=== PATIENT | male | born 1995 | race Caucasian/White ===

== ENCOUNTER 2020-02-16 09:14 | Outpatient (REF) | payer MEDICARE, MEDICAID, SELFPAY ==
[2020-02-16 11:47] LABS: Anion Gap 16 (12-20); Blood Urea Nitrogen 11 mg/dL (9-16); Calcium 9.4 mg/dL (8.4-10.2); Carbon Dioxide 24 mmol/L (22-29); Chloride 104 mmol/L (96-108); Estimated Glomerular Filt Rate > 60; Glucose Fasting 77 mg/dL (60-99); Potassium 4.1 mmol/l (3.3-5.1); Sodium 140 mmol/L (135-145)
== END 2020-02-16 09:15 | disposition home or self-care (01) ==
LOC: HO.HMGCLDS 09:14
PROVIDERS: PCP Nurse Practitioner Family; Visit Provider Psychiatry & Neurology Child & Adolescent Psychiatry
DX: F41.9 Anxiety disorder, unspecified (principal); Z79.899 Other long term (current) drug therapy; F84.0 Autistic disorder
CPT/HCPCS: 80048

== ENCOUNTER 2020-05-01 18:47 | Emergency (ER) | payer MEDICARE, MEDICAID, SELFPAY ==
[2020-05-01 19:45] VITALS: BP 125/85; PULSE 106; RESP 16; TEMP 37.1; O2SAT 98; BMI 32.3
--- NOTE | 2020-05-01 19:50 | ED.SKABFB ---
HPI - Skin/Abscess/Foreign Bdy General Chief complaint: Skin/Abscess/Foreign Body Stated complaint: SWALLOWED A BONE Time Seen by Provider: 05/01/20 19:50 Source: patient Mode of arrival: ambulatory Limitations: no limitations History of Present Illness HPI narrative: Patient had chicken earlier at 17:30 felt bone stuck in his throat no vomiting able to drink water not spitting up any blood no shortness of breath no abdominal pain patient never had similar situation in the past, no speech problems no shortness of breath Related Data Allergies Allergy/AdvReac Type Severity Reaction Status Date / Time amoxicillin Allergy Hives Verified 05/01/20 19:57 Review of Systems Review of Systems: Yes all other systems are reviewed and are negative PMFSH Past Medical History Medical History Acute anxiety Mood disorder PTSD (post-traumatic stress disorder) Social History Social History Alcohol intake: never Smoked in Last 30 Days: No Use of substances other than those prescribed or required for medical reasons: No Advance Directives: No Advance Directives Information Provided: Yes Physical Exam Vital Signs: Vital Signs: Last Vital Signs Temp 98.7 F 05/01/20 19:45 Pulse 106 H 05/01/20 19:45 Resp 16 05/01/20 19:45 BP 125/85 05/01/20 19:45 Pulse Ox 98 05/01/20 19:45 Body Mass Index 32.3 Appearance: Alert. Oriented X3. Anxious Eyes: Pupils equal, round and reactive to light. ENT: Pharynx normal. Neck: Normal inspection. Neck supple. No stridor CVS: Normal heart rate and rhythm. Pulses normal. Respiratory: No respiratory distress. Breath sounds normal. Abdomen: Soft and nontender. Bowel sounds are present, no mass palpable, no CVA tenderness Skin: Skin warm and dry. Normal skin color. Normal skin turgor. Extremities: No lower extremity edema. Neuro: Oriented X 3. No motor deficit. No sensory deficit. MDM - Skin/Abscess/Foreign Bdy MDM Narrative Medical decision making narrative: X-ray soft neck is negative for any foreign body. Patient able to swallow putting in the ER feels much better will discharge patient home advised to come back if any difficulty in swallowing or any bleeding Discharge Plan Discharge Clinical Impression: Foreign body, swallowed Qualifiers: Encounter type: initial encounter Qualified Code(s): T18.9XXA - Foreign body of alimentary tract, part unspecified, initial encounter Patient Disposition: Home, Self-Care Instructions: Foreign Body Ingestion (ED) Additional Instructions: Drink cold fluids, report to the ER if difficulty in swallowing or spitting of blood or shortness of breath Interventions: ED Discharge Assessment Last Done: 05/01/20 21:17 Discharge Date/Time: 05/01/20 21:19
--- NOTE | 2020-05-01 19:54 | XR_ITS ---
EXAMINATION: XR SOFT TISSUE NECK CLINICAL INDICATION: Question aamirbone COMPARISON: None TECHNIQUE: 2 views of the soft tissue neck were obtained. FINDINGS: Soft tissue films of the neck demonstrate a normal larynx, pharynx and upper trachea. No soft tissue swelling or opaque foreign body is demonstrated. XR/XR soft tissue neck IMPRESSION: Unremarkable examination.
--- NOTE | 2020-05-01 20:10 | PC.NURSE ---
PT HAS MOM AT BEDSIDE SHE IS HIS LEGAL GUARDIAN.
--- NOTE | 2020-05-01 21:17 | PC.NURSE ---
PT EATING PUDDING WITHOUT ISSUE NO PROBLEM SWALLOWING.
== END 2020-05-01 21:19 | disposition home or self-care (01) ==
PROVIDERS: Emergency Provider Internal Medicine; PCP Nurse Practitioner Family
DX: R13.10 Dysphagia, unspecified (principal); R09.89 Other specified symptoms and signs involving the circulatory and respiratory systems
CPT/HCPCS: 70360; 99283; 99284

== ENCOUNTER 2020-06-14 08:16 | Outpatient (REF) | payer MEDICARE, MEDICAID, SELFPAY ==
[2020-06-14 11:12] LABS: MANUAL DIFF FLAG NO
[2020-06-14 11:23] LABS: Basophils Percent Auto 0.9 % (0-2); Eosinophils Absolute Auto 0.1 X10*3/uL (0.0-0.4); Eosinophils Percent Auto 1.1 % (0-4); Hemoglobin 15.5 g/dl (14.0-18.0); Imm Gran Abs Auto 0.01 X10*3/uL (0.00-0.03); Imm Gran Pct Auto 0.2 % (0.0-0.4); Lymphocytes Absolute Auto 1.4 X10*3/uL (1.2-4.9); Lymphocytes Percent Auto 32.4 % (20-40); Mean Corpuscular HGB Conc 34.4 g/dl (31.0-36.0); Mean Platelet Volume 10.7 fL (9.4-12.4); Monocytes Absolute Auto 0.5 X10*3/uL (0.1-1.2); Monocytes Percent Auto 10.6 % (2-11); Neutrophils Absolute Auto 2.4 X10*3/uL (2.0-8.3); Neutrophils Percent Auto 54.8 % (45-73); Platelet Count 229 X10*3/uL (160-400); Red Cell Distribution Width 12.5 % (11.0-16.0); White Blood Count 4.4 X10*3/uL (4.8-10.8)
[2020-06-14 11:58] LABS: Anion Gap 14 (12-20); Blood Urea Nitrogen 16 mg/dL (9-16); Calcium 9.4 mg/dL (8.4-10.2); Carbon Dioxide 24 mmol/L (22-29); Chloride 107 mmol/L (96-108); Cholesterol 212 mg/dL; Estimated Glomerular Filt Rate > 60; Glucose Fasting 85 mg/dL (60-99); HDL Cholesterol 44 mg/dL; LDL Cholesterol Calculated 130 mg/dl; Potassium 4.1 mmol/L (3.3-5.1); Sodium 141 mmol/L (135-145); Triglycerides 191 mg/dL
[2020-06-14 12:02] LABS: Thyroid Stimulating Hormone 4.32 uIU/mL (0.32-4.0)
[2020-06-14 12:03] LABS: Estimated Average Glucose 88 mg/dL; Hemoglobin A1c % 4.7 %
[2020-06-15 06:27] LABS: Prolactin 25.9 ng/mL (2.0-18.0)
== END 2020-06-14 08:17 | disposition home or self-care (01) ==
LOC: HO.HMGCLDS 08:16
PROVIDERS: PCP Nurse Practitioner Family; Visit Provider Psychiatry & Neurology Child & Adolescent Psychiatry
DX: F63.81 Intermittent explosive disorder (principal); Z79.899 Other long term (current) drug therapy
CPT/HCPCS: 36415; 80048; 80061; 83036; 84146; 84443; 85025

== ENCOUNTER 2021-03-27 07:48 | Outpatient (REF) | payer MEDICARE, MEDICAID, SELFPAY ==
[2021-03-27 11:55] LABS: Anion Gap 13 (12-20); Blood Urea Nitrogen 15 mg/dL (9-16); Calcium 9.6 mg/dL (8.4-10.2); Carbon Dioxide 24 mmol/L (22-29); Chloride 108 mmol/L (96-108); Estimated Glomerular Filt Rate > 60; Glucose Fasting 80 mg/dL (60-99); Potassium 4.4 mmol/L (3.3-5.1); Sodium 141 mmol/L (135-145)
== END 2021-03-27 07:49 | disposition home or self-care (01) ==
LOC: HO.HMGCLDS 07:48
PROVIDERS: PCP Nurse Practitioner Family; Visit Provider Psychiatry & Neurology Child & Adolescent Psychiatry
DX: F63.81 Intermittent explosive disorder (principal); Z79.899 Other long term (current) drug therapy
CPT/HCPCS: 36415; 80048

== ENCOUNTER → 2021-11-07 10:39 | Outpatient (REF) | payer MEDICARE, MEDICAID, SELFPAY ==
--- NOTE | 2021-11-07 11:00 | ECG_ITS ---
Test Reason : HIGH RISK MED Blood Pressure : / mmHG Vent. Rate : 076 BPM Atrial Rate : 076 BPM P-R Int : 144 ms QRS Dur : 106 ms QT Int : 360 ms P-R-T Axes : 054 073 071 degrees QTc Int : 405 ms Normal sinus rhythm Normal ECG No previous ECGs available Referred By: Yaw Vick Electronically Signed By:Vaibhav Ordoñez
== END ==
LOC: HO.CARD 10:39
PROVIDERS: PCP Nurse Practitioner Family; Visit Provider Psychiatry & Neurology Child & Adolescent Psychiatry
DX: Z79.899 Other long term (current) drug therapy (principal)
CPT/HCPCS: 93005

== ENCOUNTER 2022-05-05 11:04 | Outpatient (REF) | payer MEDICARE, MEDICAID, SELFPAY ==
[2022-05-05 13:58] LABS: MANUAL DIFF FLAG NO
[2022-05-05 14:03] LABS: Basophils Absolute Auto 0.1 X10*3/uL (0.0-0.2); Basophils Percent Auto 0.9 % (0-2); Eosinophils Percent Auto 0.6 % (0-4); Hematocrit 46.6 % (42.0-52.0); Hemoglobin 16.2 g/dl (14.0-18.0); Imm Gran Abs Auto 0.02 X10*3/uL (0.00-0.03); Imm Gran Pct Auto 0.4 % (0.0-0.4); Lymphocytes Absolute Auto 1.4 X10*3/uL (1.2-4.9); Lymphocytes Percent Auto 26.5 % (20-40); Mean Corpuscular HGB Conc 34.8 g/dl (31.0-36.0); Mean Corpuscular Volume 89.1 fL (80.0-98.0); Mean Platelet Volume 10.3 fL (9.4-12.4); Monocytes Absolute Auto 0.5 X10*3/uL (0.1-1.2); Neutrophils Absolute Auto 3.3 x10*3/uL (2.0-8.3); Neutrophils Percent Auto 61.6 % (45-73); Platelet Count 184 X10*3/uL (160-400); Red Blood Count 5.23 X10*6/uL (4.60-5.80); White Blood Count 5.4 X10*3/uL (4.8-10.8)
[2022-05-05 14:12] LABS: Anion Gap 15 (12-20); Blood Urea Nitrogen 17 mg/dL (9-16); Calcium 9.7 mg/dL (8.4-10.2); Carbon Dioxide 23 mmol/L (22-29); Chloride 107 mmol/L (96-108); Cholesterol 200 mg/dL; Estimated Average Glucose 85 mg/dL; Estimated Glomerular Filt Rate > 60; Glucose Fasting 83 mg/dL (60-99); HDL Cholesterol 47 mg/dL; Hemoglobin A1c % 4.6 %; LDL Cholesterol Calculated 122 mg/dl; Potassium 4.5 mmol/L (3.3-5.1); Sodium 140 mmol/L (135-145); Triglycerides 157 mg/dL
[2022-05-06 01:13] LABS: Prolactin 23.5 ng/mL (2.0-18.0)
== END 2022-05-05 11:05 | disposition home or self-care (01) ==
LOC: HO.HMGCLDS 11:04
PROVIDERS: PCP General Practice; Visit Provider General Practice
DX: F41.9 Anxiety disorder, unspecified (principal); F84.0 Autistic disorder; F43.81 Prolonged grief disorder; Z79.899 Other long term (current) drug therapy
CPT/HCPCS: 36415; 80048; 80061; 83036; 84146; 85025

== ENCOUNTER 2023-12-16 08:54 | Outpatient (REF) | payer MEDICARE, MEDICAID, SELFPAY ==
[2023-12-16 10:09] LABS: MANUAL DIFF FLAG NO
[2023-12-16 10:13] LABS: Basophils Absolute Auto 0.1 X10*3/uL (0.0-0.2); Eosinophils Percent Auto 0.8 % (0-4); Hematocrit 44.8 % (42.0-52.0); Hemoglobin 16.2 g/dl (14.0-18.0); Imm Gran Abs Auto 0.03 X10*3/uL (0.00-0.03); Imm Gran Pct Auto 0.6 % (0.0-0.4); Lymphocytes Absolute Auto 1.4 X10*3/uL (1.2-4.9); Lymphocytes Percent Auto 27.9 % (20-40); Mean Corpuscular HGB Conc 36.2 g/dl (31.0-36.0); Mean Corpuscular Volume 88.5 fL (80.0-98.0); Mean Platelet Volume 10.1 fL (9.4-12.4); Monocytes Absolute Auto 0.7 X10*3/uL (0.1-1.2); Monocytes Percent Auto 12.6 % (2-11); Neutrophils Percent Auto 57.1 % (45-73); Platelet Count 176 X10*3/uL (160-400); Red Blood Count 5.06 X10*6/uL (4.60-5.80); Red Cell Distribution Width 12.5 % (11.0-16.0); White Blood Count 5.2 X10*3/uL (4.8-10.8)
[2023-12-16 10:25] LABS: Estimated Average Glucose 82 mg/dL; Hemoglobin A1c % 4.5 % (<6.0)
[2023-12-16 10:47] LABS: Cholesterol 204 mg/dL (<200); HDL Cholesterol 47 mg/dL (>40); LDL Cholesterol Calculated 115 mg/dL (<100); Triglycerides 212 mg/dL (<150)
== END 2023-12-16 08:55 | disposition home or self-care (01) ==
LOC: HO.HMGCLDS 08:54
PROVIDERS: Visit Provider Psychiatry & Neurology Psychiatry
DX: Z79.899 Other long term (current) drug therapy (principal); F41.9 Anxiety disorder, unspecified; F84.0 Autistic disorder; F43.89 Other reactions to severe stress; F71 Moderate intellectual disabilities
CPT/HCPCS: 36415; 80061; 83036; 85025

== ENCOUNTER 2024-12-24 08:07 | Outpatient (REF) | payer MEDICARE, MEDICAID, SELFPAY ==
[2024-12-24 11:11] LABS: MANUAL DIFF FLAG NO
[2024-12-24 11:27] LABS: Hematocrit 41.8 % (42.0-52.0); Hemoglobin 14.8 g/dl (14.0-18.0); Imm Gran Abs Auto 0.01 X10*3/uL (0.00-0.03); Imm Gran Pct Auto 0.2 % (0.0-0.4); Lymphocytes Absolute Auto 1.3 X10*3/uL (1.2-4.9); Mean Corpuscular HGB Conc 35.4 g/dl (31.0-36.0); Mean Corpuscular Hemoglobin 31.9 pg (27.0-33.0); Mean Corpuscular Volume 90.1 fL (80.0-98.0); NRBC Abs Auto 0.000 X10*3/uL (0.0-0.012); NRBC Pct Auto 0.0 /100WBC (0.0-0.2); Platelet Count 169 X10*3/uL (160-400); Red Blood Count 4.64 X10*6/uL (4.60-5.80); White Blood Count 5.3 X10*3/uL (4.8-10.8)
[2024-12-24 11:48] LABS: Alanine Aminotransferase 89 U/L (0-40); Albumin Level 4.7 g/dL (3.5-5.0); Alkaline Phosphatase 112 U/L (39-117); Anion Gap 15 (12-20); Aspartate Amino Transferase 39 U/L (5-37); Blood Urea Nitrogen 16 mg/dL (9-16); Calcium 9.0 mg/dL (8.4-10.2); Carbon Dioxide 22 mmol/L (22-29); Chloride 109 mmol/L (96-108); Estimated Glomerular Filt Rate > 60; Potassium 4.1 mmol/L (3.3-5.1); Sodium 142 mmol/L (135-145); Total Protein 7.4 g/dL (6.5-8.0)
== END 2024-12-24 08:08 | disposition home or self-care (01) ==
LOC: HO.HMGCLDS 08:07
PROVIDERS: Visit Provider Clinical Nurse Specialist Psychiatric/Mental Health, Adult
DX: F41.9 Anxiety disorder, unspecified (principal); E89.0 Postprocedural hypothyroidism; F71 Moderate intellectual disabilities; Z79.899 Other long term (current) drug therapy
CPT/HCPCS: 36415; 80053; 85025

== ENCOUNTER 2025-04-17 08:09 | Outpatient (AMB) | payer MEDICARE, MEDICAID, SELFPAY ==
--- OUTSIDE RECORDS SUMMARY | 2025-04-17 08:12 | XMS_ITS | Data Portability ---
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 History of nasal trauma as a young child. Examination today demonstrates crooked nasal dorsum to the right. Septum deviates to the left. He has nasal valve collapse bilaterally and notes improvement in nasal breathing with the Dung Maneuver. His symptoms of snoring, fatigue and headaches are concerning for sleep apnea. I would recommend a sleep study for further evaluation. He would prefer to do a home sleep study if possible given his anxiety issues. In the interim, I would recommend Flonase daily and breathe right strips. He will follow up after the sleep study for review and reassessment of symptoms. [email or web address] Not available 02/24/2024 14:50:47 Plan of Treatment Reminders Order Date Submit Date Provider Last Modified By Organization Details Last Modified Time Details Appointments None recorded. Lab None recorded. Referral None recorded. Procedures None recorded. Surgeries None recorded. Imaging polysomnogr am - patient would prefer a home sleep study 2023 024 [facility], [address] [place], [address], 16:09:44 Medication Orders fluticasone propionate 50 mcg/actuati on nasal spray,suspe nsion 2023 024 [id number], [address], [place], [id number], 4 14:51:56 Patient TargetsNo targets recorded. Patient InstructionsNo instructions recorded. Reason for Referral None Reported. Problems Name Problem SNOMED Code Status Onset Date Resolution Date Notes Provider Name and Address Organization Details Recorded Time Impacted cerumen of bilateral ears 99216632376 66062 Active 2020 Impacted cerumen, bilateral ; Note: Date Diagnosed : 12/19/2020 12:39 PM (H61.23) Not Available [facility] 4 02:58:38 Impacted cerumen in right ear 40842488966 27633 Active 2020 Impacted cerumen, right ear; Note: Date Diagnosed : 01/23/2021 12:06 PM (H61.21) Not Available [facility] 4 02:58:36 Snoring 18610524 Active 2023 Emily drake [place] - [facility] 14:48:31 Nasal congestio n 83978074 Active 2023 Emily drake [place] - [facility] 4 14:48:34 Headache 05992355 Active 2023 Emily drake [place] - [facility] 4 14:48:36 Fatigue 97108727 Active 2023 Emily drake [place] - [facility] [place] [facility] 14:48:39 Problem Notes None recorded. Medical Equipment None Reported. Allergies No known drug allergies Medications Name Sig Start Date Stop Date Status Note LastModified by Organization Details LastModified Time risperido ne 4 mg tablet 02/23 completed Medicati on ID: [id number] Triny roa Name: risperid one Send Method: E-Prescr ibed Sub s Allowed: subs OK Speci al Instruct ion: TAKE 1/2 TABLET BY MOUTH TWICE DAILY Me dication GenericN sanjay: risperid one Not Available Not Available Not Available acetamino phen 500 mg tablet 02/23 completed Medicati on ID: [id number] B rand Name: acetamin ophen Se nd Method: E-Prescr ibed Sub s Allowed: subs OK Speci al Instruct ion: TK 1 T PO Q 4 H PRN Medi cationGe nericNam e: acetamin ophen Not Available Not Available Not Available risperido ne 2 mg tablet TAKE 1 TABLET BY MOUTH TWICE DAILY active Not Available Not Available No t Available propranol ol 10 mg tablet TAKE 1/2 TABLET BY MOUTH TWICE DAILY active Not Available Not Available No t Available DOK 100 mg capsule 2020 active Medicati on ID: [id number] B rand Name: DOK Send Method: E-Prescr ibed Sub s Allowed: subs OK Speci al Instruct ion: TAKE 1 CAPSULE BY MOUTH EVERY DAY Medi cationGe nericNam e: DOK Not Available Not Available Not Available ibuprofen 200 mg tablet 02/23 completed Medicati on ID: [id number] B rand Name: ibuprofe n Send Method: E-Prescr ibed Sub s Allowed: subs OK Speci al Instruct ion: TK 2 TS PO Q 6 TO 8 HOURS PRN Medi cationGe nericNam e: ibuprofe n Not Available Not Available Not Available oxcarbaze pine 600 mg tablet TAKE 1 TABLET BY MOUTH TWICE DAILY active Not Available Not Available No t Available fluticaso ne propionat e 50 mcg/actua tion nasal spray,maryanne pension SHAKE LIQUID AND USE 2 SPRAYS IN EACH NOSTRIL EVERY DAY active Not Available Not Available No t Available neomycin- polymyxin -hydrocor t 3.5 mg-10,000 unit/mL-1 % ear drops,maryanne p SHAKE LIQUID AND INSTILL 4 DROPS TO AFFECTED EAR THREE TIMES DAILY active Not Available Not Available No t Available melatonin 5 mg tablet 02/23 completed Medicati on ID: [id number] B rand Name: melatoni n Send Method: E-Prescr ibed Sub s Allowed: subs OK Speci al Instruct ion: TAKE 1 TABLET BY MOUTH 1 HOUR BEFORE BEDTIME Medicati onGeneri cName: melatoni n Not Available Not Available Not Available Vitals Date Recorded Body height Body mass index (BMI) Body weight Provider Name and Address Organization Details Last Updated DateTime 02/24/2024 167.64 cm 33.9 kg/m2 48692.4 g Farzaneh Velasco [place] - [facility] 02/24/2024 14:25:22 Social History None recorded. Functional Status None recorded. Mental Status None recorded. Family History Nothing Reported. Medical History No medical history recorded. Past Encounters Encounter ID Performer Location Encounter Start Date Encounter Closed Date Diagnosis/Indication Diagnosis SNOMED-CT Code Diagnosis ICD10 Code Diagnosis IMO Codes Diagnosis Note [id number] EMILY JIMENEZ PA-C [facility] [address] [place] [address] 02/24/2024 14:12:19 02/24/2024 16:09:44 Snoring 13644834 R06.83 Nasal congestion 7549923 0 R09.81 Headache 09105965 R51.9 Fatigue 38530189 R53.83 Health Concerns Section Related Observation LastModified by Organization Detai ls LastModified Time None Recorded Concern Status LastModified by Organization Details LastModified Time None Recorded Advance Directives Directive None Recorded Payers Insurance Date Sequence Insurance Name Policy Number Policy Singh Covered Member ID Singh Member ID Guarantor Name 02/24/2024 2 [place] [facility] Osiel Zaidi Velia [id number] Vin Mcdonough 08/08/2024 1 [place] [employer] Osiel Mcdonough [id number] Vin Mcdonough 08/08/2024 2 [place] [facility] Osiel Zaidi Sharonda [id number] Vin Mcdonough 02/24/2024 1 [place] [facility] Osiel Zaidi Sharonda [id number] Vin Mcdonough Notes Date Note Type Note Provider Name and Address Organization Details Recorded Time 02/24/2024 text/html ROS as noted in the HPI 28 year old male presents today with his mother for evaluation of nasal issues.Mom reports he snores very loud at night. He wakes up very tired and often complains of headaches. Mom also reports noisy nasal breathing during the day. In general Osiel feels he sleeps well. Sometimes he does fall asleep early in the evening. His Mom feels he does not sleep soundly at night. He does not feel congested during the day. He does have some seasonal allergies, particularly to pollen. In general he feels he smells well. No history of recurrent sinusitis. History of nasal trauma at the age of [age], possibly a nasal fracture. He remembers have emergent surgery at that time. Emily drake [place] - [facility] 02/24/2024 14:52:02
[2025-04-17 08:23] VITALS: BP 116/80; PULSE 92; O2SAT 96; BMI 36.2
--- NOTE | 2025-04-17 08:23 | MHC.OFFWIV ---
Intake Vital Signs 04/17/25 08:23 Height 5 ft 6 in Weight 224 lb BMI 36.2 BP 116/80 Blood Pressure Location Rt brachial Position Sitting Pulse 92 Pulse Source Pulse Oximeter Pulse Oximetry (%) 96 Oxygen Delivery Method Room Air Intake Visit Reasons: EP cold sore on bottom lip bleeds at night Intake Note: Patient presents c/o cols sore on lower lip, swelling in area also x1 1/2 weeks. Patient/mother have tried OTC treatments without relief. Patient Tobacco Use Status: Never used Tobacco Allergies amoxicillin Allergy (Verified 04/17/25 08:29) Hives Medication List - Last Reconciled 04/17/25 by Lakeisha Reyna NP fluoxetine 10 mg PO BID mupirocin 2% (Centany) 1 appl topical BID oxcarbazepine 600 mg PO BID oxcarbazepine 150 mg PO BID propranolol 5 mg PO BID HPI HPI Comments History of Present Illness Details 29-year-old male presents to the walk-in clinic with complaints of lower lip blistering for approximately 1.5 weeks. He reports the skin around the lower lip is red, irritated, and has been bleeding at times. He has been applying unknown yzhx-lwj-fjvvijy creams without relief. Denies upper respiratory symptoms, fever, chills, sore throat, oral lesions elsewhere, or recent illness. Denies known trauma to the lip. No known similar prior episodes reported. COUNT INCLUDES THE [facility] Medical History (Updated 04/17/25 @ 08:47 by Lakeisha Reyna NP) Infection of lip Mood disorder PTSD (post-traumatic stress disorder) Acute anxiety Social History Alcohol intake: never Patient Tobacco Use Status: Never used Tobacco Review of Systems Const All systems reviewed & are unremarkable except as noted in HPI and below Physical Exam Vital Signs: Last Vital Signs Pulse 92 04/17/25 08:23 BP 116/80 04/17/25 08:23 Pulse Ox 96 04/17/25 08:23 Oxygen Delivery Method Room Air 04/17/25 08:23 BMI result Body Mass Index 36.2 Const General: no acute distress Nutritional Appearance: obese Orientation/consciousness: patient oriented x3 Limitations: behavioral limitations HEENT Other: Lips: Erythema and blistering localized to the lower lip, with areas of crusting and superficial fissuring; mild bleeding noted Surrounding Perioral skin erythematous and irritated No Intraoral lesions noted No purulent drainage Head: Yes normocephalic Ears: external ears normal General nose exam: Normal external nose present Mouth: moist mucous membranes Neuro General: patient oriented x3 Assessment & Plan Assessment & Plan (1) Infection of lip: Code(s): K13.0 - Diseases of lips Plan: DDx's: HSV vs Cheilisis vs Impertigo. Apply petroleum-based barrier (e.g., Vaseline or Aquaphor) to keep lips moisturized Avoid further use of unknown or medicated OTC creams. Keep area clean and dry Avoid picking, licking lips, or manipulating lesions Avoid spicy, acidic, or salty foods that may worsen irritation Medications: New mupirocin 2% (Centany) 1 appl topical BID 15 grams 0RF K13.0 - Diseases of lips Coding Level of Care Code Est Pt Level 4 (93264) Diagnoses Infection of lip K13.0 Time Spent (min) 20
== END 2025-04-17 08:47 | disposition home or self-care (01) ==
PROVIDERS: PCP General Practice; Visit Provider Nurse Practitioner Family
DX: K13.0 Diseases of lips (principal)

== ENCOUNTER → 2025-04-17 08:09 | Outpatient (BNVA) | payer MEDICARE, MEDICAID, SELFPAY | PROVIDERS: PCP General Practice; Visit Provider Nurse Practitioner Family | DX: K13.0 Diseases of lips (principal) | CPT/HCPCS: 99212 ==